=== PATIENT | male | born 2005 | race Caucasian/White ===

== ENCOUNTER 2024-10-03 12:56 | Outpatient (CLI) | payer BC, SELFPAY | END 2024-10-03 12:57 | disposition home or self-care (01) | PROVIDERS: PCP Family Medicine; Visit Provider Family Medicine | DX: Z00.00 Encounter for general adult medical examination without abnormal findings (principal); E78.00 Pure hypercholesterolemia, unspecified | CPT/HCPCS: 80048; 80061 ==